=== PATIENT | female | born 1990 | race Caucasian/White ===

== ENCOUNTER 2016-12-26 11:19 | Emergency (ER) | payer BC ==
--- NOTE | 2016-12-26 11:32 | ER Document Report ---
ED Medical Screen (RME) - General Stated Complaint: VAGINAL BLEEDING Mode of Arrival: Ambulatory Information source: Patient Notes: She presents with complaints of vaginal bleeding with clots. Patient reports she is approximately 9 weeks . Patient reports vaginal bleeding started after pelvic exam by her OB on Wednesday. Bleeding has became progressively worse. Denies abdominal pain, denies trauma, f/n/v/d. I have greeted and performed a rapid initial assessment of this patient. A comprehensive ED assessment and evaluation of the patient, analysis of test results and completion of the medical decision making process will be conducted by additional ED providers. - Related Data Allergies/Adverse Reactions: No Known Allergies Allergy (Unverified 12/26/16 11:29) Physical Exam - Vital signs Vitals: Temp Pulse Resp BP Pulse Ox 98.2 F 72 20 120/73 100 12/26/16 11:27 12/26/16 11:27 12/26/16 11:27 12/26/16 11:27 12/26/16 11:27 Course - Vital Signs Vital signs: Temp Pulse Resp BP Pulse Ox 98.2 F 72 20 120/73 100 12/26/16 11:27 12/26/16 11:27 12/26/16 11:27 12/26/16 11:27 12/26/16 11:27
[2016-12-26 12:03] LABS: ABSOLUTE BASOPHILS # (AUTO) 0.1 10^3/uL (0.0-0.2); ABSOLUTE EOSINOPHILS # (AUTO) 0.2 10^3/uL (0.0-0.6); ABSOLUTE LYMPHOCYTES (AUTO) 1.2 10^3/uL (0.5-4.7); ABSOLUTE MONOCYTES (AUTO) 0.5 10^3/uL (0.1-1.4); ABSOLUTE NEUT (AUTO) 4.4 10^3/uL (1.7-8.2); BASOPHILS % (AUTO) 0.9 % (0-2); EOSINOPHILS % (AUTO) 3.1 % (0-6); HEMATOCRIT 38.9 % (36.0-47.0); HEMOGLOBIN 12.9 g/dL (12.0-15.5); HGB HCT DIFFERENCE -0.2; LYMPHOCYTES % (AUTO) 19.6 % (13-45); MEAN CORPUSCULAR HEMOGLOBIN 29.3 pg (27.0-33.4); MEAN CORPUSCULAR HGB CONC 33.2 g/dL (32.0-36.0); MEAN CORPUSCULAR VOLUME 88 fl (80-97); MONOCYTES % (AUTO) 7.3 % (3-13); RED BLOOD COUNT 4.41 10^6/uL (3.72-5.28); RED CELL DISTRIBUTION WIDTH 12.4 % (11.5-14.0); SEGMENTED NEUTROPHILS % (AUTO) 69.1 % (42-78); WHITE BLOOD COUNT 6.3 10^3/uL (4.0-10.5)
[2016-12-26 12:20] LABS: ALANINE AMINOTRANSFERASE 27 U/L (9-52); ALBUMIN 4.6 g/dL (3.5-5.0); ALKALINE PHOSPHATASE 40 U/L (38-126); ANION GAP 13 (5-19); ASPARTATE AMINO TRANSFERASE 19 U/L (14-36); BLOOD UREA NITROGEN 10 mg/dL (7-20); CALCIUM 9.6 mg/dL (8.4-10.2); CARBON DIOXIDE 20 mmol/L (22-30); CHLORIDE 105 mmol/L (98-107); CREATININE RESULT 0.75 mg/dL (0.52-1.25); GLUCOSE 85 mg/dL (75-110); POTASSIUM 3.8 mmol/L (3.6-5.0); SODIUM 138.2 mmol/L (137-145); TOTAL PROTEIN 7.3 g/dL (6.3-8.2)
--- NOTE | 2016-12-26 12:57 | ER Document Report ---
ED GI/ - General Chief Complaint: Vaginal Bleeding Stated Complaint: VAGINAL BLEEDING Mode of Arrival: Ambulatory Notes: Patient is a 26-year-old female presents emergency Department complaining of vaginal bleeding worse since Wednesday. Patient states that she is approximately 9 weeks with a last menstrual period 10/18/2017. Patient states that she went to her [facility] on Wednesday for ultrasound and pelvic exam. She patient states that she came home Wednesday and started having spotting that began progressively worse. Patient states that yesterday she went through about 4 pads that today she is passing heavy clots. She denies any cramping abdominal pain nausea vomiting diarrhea., Hematuria, frequency or urgency. Denies any past medical or past surgical history Social history denies any tobacco use, drug use, alcohol Does not have a primary care provider [facility] [place] [facility]. TRAVEL OUTSIDE OF THE [place] IN LAST 30 DAYS: No - Related Data Allergies/Adverse Reactions: No Known Allergies Allergy (Unverified 12/26/16 11:29) Past Medical History - General Information source: Patient Last Menstrual Period: 10-18-2016 - Social History Smoking Status: Never Smoker Chew tobacco use (# tins/day): No Frequency of alcohol use: None Drug Abuse: None Family History: Reviewed & Not Pertinent Patient has suicidal ideation: No Patient has homicidal ideation: No Renal/ Medical History: Denies: Hx Peritoneal Dialysis Surgical Hx: Negative - Immunizations Hx Diphtheria, Pertussis, Tetanus Vaccination: Yes Review of Systems - Review of Systems Constitutional: No symptoms reported EENT: No symptoms reported Cardiovascular: No symptoms reported Respiratory: No symptoms reported Gastrointestinal: No symptoms reported Genitourinary: No symptoms reported Female Genitourinary: See HPI Musculoskeletal: No symptoms reported Skin: No symptoms reported Hematologic/Lymphatic: No symptoms reported Neurological/Psychological: No symptoms reported Physical Exam - Vital signs Vitals: Temp Pulse Resp BP Pulse Ox 98.2 F 72 20 120/73 100 12/26/16 11:27 12/26/16 11:27 12/26/16 11:27 12/26/16 11:12/26/16 11:27 - Notes Notes: PHYSICAL EXAM GENERAL: Alert, interacts well. HEAD: Normocephalic, atraumatic. EYES: Pupils equal, round, and reactive to light. Extraocular movements intact. ENT: Oral mucosa moist, tongue midline. NECK: Full range of motion. Supple. Trachea midline. LUNGS: Clear to auscultation bilaterally, no wheezes, rales, or rhonchi. No respiratory distress. HEART: Regular rate and rhythm. No murmurs, gallops, or rubs. ABDOMEN: Soft, nondistended, nontender. No guarding, rebound, or rigidity.. Bowel sounds present in all 4 quadrants. Female exam deferred EXTREMITIES: Moves all 4 extremities spontaneously. No edema, radial and dorsalis pedis pulses 2/4 bilaterally. No cyanosis. NEUROLOGICAL: Alert and oriented x3. Normal speech. PSYCH: Normal affect, normal mood. SKIN: Warm, dry, normal turgor. No rashes or lesions noted. Course - Re-evaluation Re-evalutation: 12/26/16 13:10 Patient is a 26-year-old female presents emergency room complaining of vaginal bleeding that has gotten progressively worse since Wednesday. CBC does not reveal any acute anemia. [place] [address] which is low given the patient states she is approximately 9 weeks . 12/26/16 13:31 TVUS reveal IUP without heart tones. Discussed with patient that she is a having a miscarriage and needs to follow up with her OBGYN on Wednesday. At this time, pt is HDS - Vital Signs Vital signs: Temp Pulse Resp BP Pulse Ox 98.2 F 72 20 120/73 100 12/26/16 11:27 12/26/16 11:27 12/26/16 11:27 12/26/16 11:27 12/26/16 11:27 - Laboratory Result Diagrams: 12/26/16 11:38 12/26/16 11:38 Laboratory results interpreted by me: 12/26/16 11:38 Carbon Dioxide 20 L Beta HCG, Quant 76509.00 H - Diagnostic Test Radiology reviewed: Reports reviewed Discharge - Discharge Clinical Impression: Vaginal bleeding before 22 weeks gestation Condition: Good Disposition: HOME, SELF-CARE Additional Instructions: THREATENED MISCARRIAGE: You have been evaluated for a possible miscarriage. At this time, there is no indication that a miscarriage will occur. Most women with your symptoms will go on to have a perfectly normal baby. However, careful observation will be necessary. A miscarriage occurs when the fetus is abnormal. There is no medicine or treatment for it. You should rest in bed until the symptoms have resolved. Do not douche or have sex for at least a week, or until OK'd by the doctor. Call the doctor or return for re-examination if there is an increase in bleeding or cramping, or passage of tissue. FOLLOW-UP CARE: If you have been referred to a physician for follow-up care, call the physician s office for an appointment as you were instructed or within the next two days. If you experience worsening or a significant change in your symptoms (very heavy bleeding with large clots of blood, passage of tissue, more severe abdominal / pelvic pain or cramping, feeling faint or severe weakness, fever, etc.), notify the physician immediately or return to the Emergency Department at any time for re-evaluation. Please follow up with your OBGYN for reassessment on Wednesday
[2016-12-26 13:53] VITALS: BP 105/61
== END 2016-12-26 13:50 | disposition home or self-care (01) ==
LOC: ER 11:19
DX: O46.91 Antepartum hemorrhage, unspecified, first trimester (principal); Z3A.09 9 weeks gestation of pregnancy
CPT/HCPCS: 36415; 76817; 80053; 84702; 85025; 86900; 86901; 99284

== ENCOUNTER → 2018-11-14 | Outpatient (CLI) | payer BC | LOC: LAB 16:22 | PROVIDERS: ATTEND Nurse Practitioner | DX: Z32.01 Encounter for pregnancy test, result positive (principal) | CPT/HCPCS: 36415; 84702 ==

== ENCOUNTER → 2018-11-21 | Outpatient (CLI) | payer BC | LOC: LAB 13:35 | PROVIDERS: ATTEND Nurse Practitioner | DX: O03.9 Complete or unspecified spontaneous abortion without complication (principal) | CPT/HCPCS: 36415; 84702 ==

== ENCOUNTER 2019-11-15 19:42 | Emergency (ER) | payer BC ==
--- NOTE | 2019-11-15 20:17 | ER Document Report ---
ED Medical Screen (RME) - General Chief Complaint: Vaginal Bleeding Stated Complaint: VAGINAL BLEEDING 9 WKS PREG Time Seen by Provider: 11/15/19 20:13 Primary Care Provider: ASHLI ABARCA NP [Primary Care Provider] - Follow up as needed Information source: Patient Notes: Patient presents 9 weeks G8, P0 complaining of vaginal bleeding that started about an hour and a half prior to arrival. Patient denies any abdominal tenderness. Patient denies any lightheadedness or dizziness. Patient does report passing clots. Patient does have a history of factor V Leiden and is currently on Lovenox. I have greeted and performed a rapid initial assessment of this patient. A comprehensive ED assessment and evaluation of the patient, analysis of test results and completion of the medical decision making process will be conducted by additional ED providers. TRAVEL OUTSIDE OF THE [place] IN LAST 30 DAYS: No - Related Data Allergies/Adverse Reactions: No Known Allergies Allergy (Unverified 12/26/16 11:29) Past Medical History Renal/ Medical History: Denies: Hx Peritoneal Dialysis - Immunizations Hx Diphtheria, Pertussis, Tetanus Vaccination: Yes Physical Exam - Vital signs Vitals: Temp Pulse Resp BP Pulse Ox 98.2 F 79 16 140/89 H 100 11/15/19 19:47 11/15/19 19:47 11/15/19 19:47 11/15/19 19:47 11/15/19 19:47 - General General appearance: Appears well, Alert In distress: None Course - Vital Signs Vital signs: Temp Pulse Resp BP Pulse Ox 98.2 F 79 16 140/89 H 100 11/15/19 19:47 11/15/19 19:47 11/15/19 19:47 11/15/19 19:47 11/15/19 19:47 Doctor's Discharge - Discharge Referrals: ASHLI ABARCA NP [Primary Care Provider] - Follow up as needed
[2019-11-15 21:02] LABS: ABSOLUTE BASOPHILS # (AUTO) 0.1 10^3/uL (0.0-0.2); ABSOLUTE EOSINOPHILS # (AUTO) 0.2 10^3/uL (0.0-0.6); ABSOLUTE LYMPHOCYTES (AUTO) 1.6 10^3/uL (0.5-4.7); ABSOLUTE MONOCYTES (AUTO) 0.6 10^3/uL (0.1-1.4); ABSOLUTE NEUT (AUTO) 6.6 10^3/uL (1.7-8.2); EOSINOPHILS % (AUTO) 2.7 % (0-6); HEMATOCRIT 37.1 % (36.0-47.0); LYMPHOCYTES % (AUTO) 17.2 % (13-45); MEAN CORPUSCULAR HGB CONC 35.1 g/dL (32.0-36.0); MEAN CORPUSCULAR VOLUME 88 fl (80-97); MONOCYTES % (AUTO) 6.3 % (3-13); PLATELET COUNT 197 10^3/uL (150-450); RED BLOOD COUNT 4.21 10^6/uL (3.72-5.28); RED CELL DISTRIBUTION WIDTH 12.3 % (11.5-14.0); SEGMENTED NEUTROPHILS % (AUTO) 72.8 % (42-78); TOTAL CELLS COUNTED % (AUTO) 100 %
--- NOTE | 2019-11-15 21:30 | RADIOLOGY REPORT (SQ) ---
EXAM DESCRIPTION: US TRANSVAGINAL COMPLETED DATE/TME: 11/15/2019 20:16 CLINICAL HISTORY: 29 years, Female, vag bleeding COMPARISON: Prior study from 12/26/2016 TECHNIQUE: Axial 2-D grayscale images of the pelvis were acquired. Doppler was utilized. LIMITATIONS: None. FINDINGS: Uterus measures 8.9 x 7.8 x 7.9 cm in size. An intrauterine gestational sac is identified. Measurements are as follows: Mean sac diameter is 2.34 cm [place]-rump length is 2.0 cm Estimated gestational age is 8 weeks and 0 days. No heart tones were identified. An area of hypoechogenicity is noted about the periphery of the gestational sac measuring 1.2 x 1.1 x 0.5 cm in size, suspicious subchorionic hemorrhage. Cervix is closed, measuring 2.8 cm. Right ovary measures 1.6 x 2.0 x 3.7 cm in size. Left ovary measures 2.7 x 2.4 x 3.9 cm in size. Both are normal in echogenicity, demonstrating elements of Doppler flow. IMPRESSION: Single intrauterine with crown-rump length measuring 2.0 cm. However, no heart tones were identified. Overall, this is highly suggestive of demise. Superimposed small focus of perigestational hypoechogenicity, indicative of a small subchorionic hematoma. copyright 2011 [employer]- All Rights Reserved
--- NOTE | 2019-11-15 23:37 | ER Document Report ---
ED GI/ - General Chief Complaint: Vag Bleeding, +preg <12wks Stated Complaint: VAGINAL BLEEDING 9 WKS PREG Time Seen by Provider: 11/15/19 20:13 Primary Care Provider: ASHLI ABARCA NP [NO LOCAL MD] - Follow up tomorrow Mode of Arrival: Ambulatory Information source: Patient Notes: 29-year-old female presented to ED for complaint of pelvic pain and vaginal bleeding. She is 8 para 0. 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 She states she was not having any pain until after she got here. She states she did have to have D&C for couple of the pregnancies. She states she is on Lovenox for factor V Leiden. TRAVEL OUTSIDE OF THE [place] IN LAST 30 DAYS: No - HPI Patient complains to provider of: Pelvic pain, , Vaginal bleeding Onset: This afternoon Timing/Duration: Intermittent Quality of pain: Cramping Severity at maximum: Mild Severity in ED: Mild Location: Pelvis Vaginal bleeding (Compared to normal period): Dark brown Menstrual period history: - demise heart tones (bpm): 0 OB ultrasound done: Yes Associated symptoms: Other - Vaginal bleeding Exacerbated by: Denies, Standing Similar symptoms previously: Yes Recently seen / treated by doctor: Yes - Related Data Allergies/Adverse Reactions: No Known Allergies Allergy (Unverified 12/26/16 11:29) Home Medications: Lovenox Past Medical History - General Information source: Patient - Social History Smoking Status: Never Smoker Chew tobacco use (# tins/day): No Frequency of alcohol use: None Drug Abuse: None Lives with: Family Family History: Reviewed & Not Pertinent Patient has suicidal ideation: No Patient has homicidal ideation: No - Medical History Medical History: Other - Factor V Leiden - Past Medical History Cardiac Medical History: Reports: None Pulmonary Medical History: Reports: None EENT Medical History: Reports: None Neurological Medical History: Reports: None Endocrine Medical History: Reports: None Renal/ Medical History: Reports: Other - 8 para 0 Malignancy Medical History: Reports: None GI Medical History: Reports: None Musculoskeletal Medical History: Reports None Skin Medical History: Reports None Psychiatric Medical History: Reports: None Traumatic Medical History: Reports: None Infectious Medical History: Reports: None Past Surgical History: Reports: Hx Dilation and Curettage - Immunizations Immunizations up to date: Yes Hx Diphtheria, Pertussis, Tetanus Vaccination: Yes Review of Systems - Review of Systems Constitutional: No symptoms reported EENT: No symptoms reported Cardiovascular: No symptoms reported Respiratory: No symptoms reported Gastrointestinal: No symptoms reported Genitourinary: No symptoms reported Female Genitourinary: , Vaginal bleeding, Other - demise Musculoskeletal: No symptoms reported Skin: No symptoms reported Hematologic/Lymphatic: No symptoms reported Neurological/Psychological: No symptoms reported -: Yes All other systems reviewed and negative Physical Exam - Vital signs Vitals: Temp Pulse Resp BP Pulse Ox 98.2 F 79 16 140/89 H 100 11/15/19 19:47 11/15/19 19:47 11/15/19 19:47 11/15/19 19:47 11/15/19 19:47 Interpretation: Normal - General General appearance: Appears well, Alert - HEENT Head: Normocephalic, Atraumatic Eyes: Normal Pupils: PERRL - Respiratory Respiratory status: No respiratory distress Chest status: Nontender Breath sounds: Normal Chest palpation: Normal - Cardiovascular Rhythm: Regular Heart sounds: Normal auscultation Murmur: No - Abdominal Inspection: Normal Distension: No distension Bowel sounds: Normal Tenderness: Nontender Organomegaly: No organomegaly - Back Back: Normal, Nontender - Extremities General upper extremity: Normal inspection, Nontender, Normal color, Normal ROM, Normal temperature General lower extremity: Normal inspection, Nontender, Normal color, Normal ROM, Normal temperature, Normal weight bearing. No: Ramón's sign - Neurological Neuro grossly intact: Yes Cognition: Normal Orientation: AAOx4 Karen Coma Scale Eye Opening: Spontaneous [place] Coma Scale Verbal: Oriented [place] Coma Scale Motor: Obeys Commands [place] Coma Scale Total: 15 Speech: Normal Motor strength normal: LUE, RUE, LLE, RLE Sensory: Normal - Psychological Associated symptoms: Normal affect, Normal mood - Skin Skin Temperature: Warm Skin Moisture: Dry Skin Color: Normal Course - Re-evaluation Re-evalutation: 11/16/19 08:20 Discussed lab and ultrasound results with patient. Instructed patient to please follow-up with [facility] by telephone today to discuss lab and ultrasound results. - Vital Signs Vital signs: Temp Pulse Resp BP Pulse Ox 97.4 F 69 18 124/68 97 11/15/19 23:41 11/15/19 23:41 11/15/19 23:41 11/15/19 23:41 11/15/19 23:41 - Laboratory Result Diagrams: 11/15/19 20:20 Laboratory results interpreted by me: 11/15/19 20:20 Beta HCG, Quant 5594.70 H - Diagnostic Test Radiology reviewed: Image reviewed, Reports reviewed Discharge - Discharge Clinical Impression: demise before 20 weeks with retention of fetus Condition: Stable Disposition: HOME, SELF-CARE Additional Instructions: Miscarriage Impending You have been evaluated for a possible miscarriage. At this time, it appears that the fetus has stopped growing. A miscarriage occurs when the fetus is abnormal. There is no medicine or treatment to prevent it. If bleeding is not severe, and if your pain can be controlled with medicine, you could complete the miscarriage at home. If that's not practical, or if the miscarriage doesn't progress spontaneously, we will arrange for a D&C procedure. You should rest in bed. Do not douche or have sex for at least a week, or until OK'd by the doctor. If you believe you've passed the fetus, collect it in a zip-lock plastic bag. Be sure to follow up with your doctor. Call the doctor or return for re- examination if there is an increase in bleeding or cramping, extreme weakness, fainting, fever, or passage of tissue. Given you a written report of the labs and ultrasound. You will need to follow- up with your [facility] tomorrow as there is a demise with retention of the fetus. Acetaminophen Acetaminophen may be taken for pain relief or fever control. It's much s afer than aspirin, offering a wider range of "safe" dosages. It is safe during . Some brand names are Tylenol, Panadol, Datril, Anacin 3, Tempra, and Liquiprin. Acetaminophen can be repeated every four hours. The following are maximum recommended dosages: WEIGHT Dose Drops Elixir Chewable(80mg) (LBS.) drprs=droppers tsp=teaspoon 6 40 mg .4 ml (1/2) 6-11 80 mg .8 ml (full) 1/2 tsp 1 tab 12-16 120 mg 1 1/2 drprs 3/4 tsp 1 1/2 tabs 17-23 160 mg 2 drprs 1 tsp 2 tabs 24-30 240 mg 3 drprs 1 1/2 tsp 3 tabs 30-35 320 mg 2 tsp 4 tabs 36-41 360 mg 2 1/4 tsp 4 1/2 tabs 42-47 400 mg 2 1/2 tsp 5 tabs 48-53 480 mg 3 tsp 6 tabs 54-59 520 mg 3 1/4 tsp 6 1/2 tabs 60-64 560 mg 3 1/2 tsp 7 tabs 65-70 600 mg 3 3/4 tsp 7 1/2 tabs 71-76 640 mg 4 tsp 8 tabs 77-82 720 mg 4 1/2 tsp 9 tabs 83-88 800 mg 5 tsp 10 tabs >89 pounds or adults 650 mg to 900 mg Acetaminophen can be repeated every four hours. Maximum daily dose not to exceed 4000 mg. These maximum recommended dosages are slightly higher than the dosages written on the product container, but these dosages are very safe and well below the toxic dosage for acetaminophen. FOLLOW-UP CARE: If you have been referred to a physician for follow-up care, call the ysicians office for an appointment as you were instructed or within the next two days. If you experience worsening or a significant change in your symptoms, notify the physician immediately or return to the Emergency Department at any time for re-evaluation. Forms: Elevated Blood Pressure, Return to Work Referrals: ASHLI ABARCA NP [NO LOCAL MD] - Follow up tomorrow
[2019-11-15 23:44] VITALS: BP 124/68
== END 2019-11-15 23:44 | disposition home or self-care (01) ==
LOC: ER 19:42
DX: O02.1 Missed abortion (principal); R10.2 Pelvic and perineal pain; Z3A.09 9 weeks gestation of pregnancy
CPT/HCPCS: 36415; 76817; 84702; 85025; 86900; 86901; 99284